=== PATIENT | female | born 1955 | race Caucasian/White ===

== ENCOUNTER 2017-06-19 07:24 | Day surgery (SDC) | payer OTHER, SELFPAY ==
[~2017-06-19 07:24] MED LIST: CHOL10002 PO; ZESTORETIC 20-121 E1 PO
== END 2017-06-19 23:08 | disposition home or self-care (01) ==
LOC: MOI MAM 07:24
PROC: 0HBU3ZX Excision of Left Breast, Percutaneous Approach, Diagnostic (ICD-10-PCS; principal; 2017-06-19)
DX: N62 Hypertrophy of breast (principal)
CPT/HCPCS: 19083; 19084; 77065; 88304; 88305; A4648; G0279

== ENCOUNTER 2021-09-09 08:31 | Day surgery (SDC) | payer OTHER ==
[~2021-09-09] VITALS: Ht 167.6 cm; Wt 92.0 kg
== END 2021-09-09 11:05 | disposition home or self-care (01) ==
LOC: ORSCSDS 08:31 → ORD 09:30 → ORSCMMR 09:30 → ORSCSDS 11:05
PROVIDERS: Internal Medicine Gastroenterology
PROC: 0DBN8ZX Excision of Sigmoid Colon, Via Natural or Artificial Opening Endoscopic, Diagnostic (ICD-10-PCS; principal; 2021-09-09 09:30)
PROC: 0DBP8ZX Excision of Rectum, Via Natural or Artificial Opening Endoscopic, Diagnostic (ICD-10-PCS; principal; 2021-09-09 09:30)
DX: Z12.11 Encounter for screening for malignant neoplasm of colon (principal); Z86.010 Personal history of colon polyps; K64.8 Other hemorrhoids; K57.30 Diverticulosis of large intestine without perforation or abscess without bleeding; K52.9 Noninfective gastroenteritis and colitis, unspecified; I10 Essential (primary) hypertension; E66.9 Obesity, unspecified; Z68.35 Body mass index [BMI] 35.0-35.9, adult; Z79.899 Other long term (current) drug therapy
CPT/HCPCS: 88305; J0461; J2250; J2704; J7120

== ENCOUNTER → 2022-04-22 | Outpatient (CLI) | payer OTHER | END | disposition home or self-care (01) | LOC: LAB 23:15 → LAB SHORT 23:15 | DX: K52.9 Noninfective gastroenteritis and colitis, unspecified (principal) | CPT/HCPCS: 87338 ==

== ENCOUNTER 2022-07-03 06:37 | Inpatient (IN) | payer OTHER ==
[~2022-07-03] VITALS: Ht 167.6 cm; Wt 91.0 kg
[~2022-07-03 06:37] MED LIST changes: +CIPR500 PO; +IRON18 MG PO; +Vitamin C100 M1 PO; +ZESTORETIC 20-1 EACH PO
--- NOTE | 2022-07-03 07:28 | NUR ---
Ambulatory in Day Surgery. History, Chart, Medications and Allergies reviewed before start of procedure.Patient confirms NPO status EXCEPT PRESCRIBED BOWEL PREP AT 0515 THIS MORNING and agrees with scheduled surgery. Patient reports completing Chlorhexadine shower X2 prior to admission to hospital.Patient states colon prep results clear. Lungs clear T/O to Auscultation. Surgical site prepped with 2% Chlorhexidine cloth wipe. PERSONAL BAG AND GLASSES WILL BE LABELED AND TAKEN TO PACU
--- NOTE | 2022-07-03 07:56 | NUR ---
REPORT GIVEN TO SEBASTIAN HALEY
--- NOTE | 2022-07-03 15:07 | NUR ---
EPIDURAL INCREAED BY 2ML/HR UP TO 12ML/HR FROM 10. WILL CONTINUE TO TITRATE EVERY 30 MIN UNTIL PAIN LESS THAN 3.
--- NOTE | 2022-07-03 20:04 | NUR ---
SHIFT SUMMARY POD0 COLECTOMY, ABD DRESSING C/D/I T/O THE SHIFT, EPIDURAL IN PLACE, PT REPORTS HAVING FULL SENSATION BUT IS GETTING EFFECT FROM PAIN MANAGEMENT PERSPECTIVE OF EPIDURAL. ABLE TO TITRATE EPIDURAL PER MD ORDER NOTED. NO ACUTE EVENTS THIS SHIFT, CALL LIGHT IN REACH, REPORT GIVEN TO NOC RN.
--- NOTE | 2022-07-04 04:40 | NUR ---
POD1 SIGMOID COLECTOMY. ROMELIA IS C/D/I AND COMPRESSED. VSS, PT NOTED TO BE BRADYCARDIC AT SOME TIMES IN THE 50'S BUT REMAINED ASYMPTOMATIC. EPIDURAL IN PLACE, SITE IS C/D/I. PAIN IS CONTROLLED WELL AT 14 MLS/HR WITH BOLUS PUSHES. PT HAS BEEN ABLE TO REPOSITION SELF T/O THE NIGHT IN BED WITH SOME ASSISTANCE. PT REPORTS FULL SENSATION T/O BODY. REPORTS INCREASED PAIN WTIH MOVEMENT, ENCOURAGED TO USE PAIN BUTTON. PT REPORTS PAIN IS WELL CONTROLLED WHEN DOING THIS. HERRERA IN PLACE, DRAINING TO GRAVITY. YELLOW URINE, GOOD OUTPUT. PT TOLLERATING MINIMAL PO INTAKE W/O N/V. NO FLATTUS NOTED. PLAN FOR PT TO GET OOB TODAY IF TOLLERABLE AND SLOWLY INCREASE PO INTAKE. NO ACUTE EVENTS T/O THE NIGHT. PT WAS ABLE TO SLEEP A LITTLE. THE PATIENT IS CURRENTLY RESTING, IN NO DISTRESS, CALL LIGHT IN REACH
[2022-07-04 05:17] LABS: BASOPHILS ABSOLUTE AUTO 0.02 K/mm3 (0.00-0.23); BASOPHILS PERCENT AUTO 0 % (0-2); EOSINOPHILS ABSOLUTE AUTO 0.01 K/mm3 (0.00-0.68); EOSINOPHILS PERCENT AUTO 0 % (0-6); Hematocrit 32.7 % (33.0-51.0); Hemoglobin 10.4 g/dL (11.5-16.0); IMMATURE GRAN ABSOLUTE AUTO 0.06 K/mm3 (0.00-0.10); IMMATURE GRAN PERCENT AUTO 1 % (0-1); LYMPHOCYTES PERCENT AUTO 13 % (21-46); MONOCYTES ABSOLUTE AUTO 0.99 K/mm3 (0.16-1.47); MONOCYTES PERCENT AUTO 8 % (4-13); Mean Corpuscular HGB 29.1 pg (26.0-34.0); Mean Corpuscular HGB Conc 31.8 g/dL (31.5-36.5); Mean Corpuscular Volume 92 fL (80-100); Mean Platelet Volume 8.1 fL (9.1-12.4); NEUTROPHILS ABSOLUTE AUTO 9.62 K/mm3 (1.96-9.15); NEUTROPHILS PERCENT AUTO 78 % (41-73); Platelet Count 271 K/mm3 (150-400); RDW Coefficient Variation 14.1 % (11.7-14.2); RDW Standard Deviation 47.9 fL (35.1-46.3); Red Blood Cell Count 3.57 M/mm3 (3.80-5.20)
[2022-07-04 06:15] LABS: Albumin, Blood 2.2 g/dL (3.4-5.0); Albumin/Globulin Ratio 0.5 (0.8-1.8); Bilirubin, Total 0.3 mg/dL (0.1-1.0); Bun/Creatinine Ratio 15.7 (12.0-20.0); Calcium, Blood 8.6 mg/dL (8.5-10.1); Creatinine, Blood 0.64 mg/dL (0.40-1.00); Globulin, Blood 4.2 g/dL (2.2-4.0); Potassium, Blood 3.2 mmol/L (3.5-5.5); Total Protein, Blood 6.4 g/dL (6.4-8.2)
--- NOTE | 2022-07-05 06:28 | NUR ---
SHIFT SUMMARY: PT SLEPT COMFORTABLY T/O THE NIGHT. EPIDURAL IN PLACE AND MANAGED PAIN. TOLERATING SMALL AMOUNTS OF PO FLUIDS AT THIS TIME. HERRERA IN PLACE, PATENT AND DRAINING TO GRAVITY. MIDLINE ROMELIA REMAINS C/D/I AT THIS TIME. RESTING AT THIS TIME WITH CALL LIGHT IN REACH.
--- NOTE | 2022-07-05 18:36 | NUR ---
END OF SHIFT SUMMARY: PATIENT PAIN CONTROLLED WITH THE EPIDURAL TODAY, OTHER THAN WITH STANDING AND TRANSFERRING. PATIENT EXPERIENCED HIGH LEVELS OF PAIN THAT RESOLVED WITH REST. PATIENT DENIED NAUSEA THROUGHOUT THE SHIFT. PATIENT CONTINUES TO DENY FLATUS. PATIENT UP TO THE CHAIR FOR LUNCH AND STAYED UP FOR ABOUT AN HOUR. PATIENT IS TOLERATING HER DIET WITHOUT NAUSEA OR AN INCREASE IN PAIN. PATIENT DID REQUIRE THE ADDITION OF A PRN TUMS FOR HEARTBURN THIS AFTERNOON. PATIENT DISPLAYS SIGNS OF ANXIETY WHEN CONTEMPLATING THE MOBILITY THAT WILL BE REQUIRED ONCE THE INDWELLING CATHETER IS DISCONTINUED TOMORROW. PROVIDED EDUCATION AND REASSURANCE.
--- NOTE | 2022-07-06 04:43 | NUR ---
SHIFT SUMMARY: PODx3 SIG. COLECTOMY. MIDLINE ROMELIA REMAINS C/D/I AT THIS TIME. PT REPORTED MILD HEARTBURN THAT WAS MANAGED WITH TUMS. ENCOURAGED TO DRINK PO FLUIDS. EPIDURAL MANAGING PAIN WELL. PT SAT IN CHAIR FOR DAY SHIFT, REMAINED IN BED FOR THE NIGHT. PLANS TO HAVE EPIDURAL REMOVED TODAY WITH HERRERA. RESTING WITH CALL LIGHT IN REACH. WILL GIVE REPORT TO DAY TIME RN.
[2022-07-07 04:16] LABS: BASOPHILS ABSOLUTE AUTO 0.04 K/mm3 (0.00-0.23); BASOPHILS PERCENT AUTO 0 % (0-2); EOSINOPHILS ABSOLUTE AUTO 0.13 K/mm3 (0.00-0.68); EOSINOPHILS PERCENT AUTO 1 % (0-6); Hematocrit 37.2 % (33.0-51.0); Hemoglobin 12.2 g/dL (11.5-16.0); IMMATURE GRAN ABSOLUTE AUTO 0.12 K/mm3 (0.00-0.10); IMMATURE GRAN PERCENT AUTO 1 % (0-1); LYMPHOCYTES ABSOLUTE AUTO 1.67 K/mm3 (0.84-5.20); LYMPHOCYTES PERCENT AUTO 10 % (21-46); MONOCYTES ABSOLUTE AUTO 0.98 K/mm3 (0.16-1.47); MONOCYTES PERCENT AUTO 6 % (4-13); Mean Corpuscular HGB 29.3 pg (26.0-34.0); Mean Corpuscular HGB Conc 32.8 g/dL (31.5-36.5); Mean Corpuscular Volume 89 fL (80-100); Mean Platelet Volume 8.4 fL (9.1-12.4); NEUTROPHILS ABSOLUTE AUTO 13.69 K/mm3 (1.96-9.15); NEUTROPHILS PERCENT AUTO 82 % (41-73); Platelet Count 369 K/mm3 (150-400); RDW Coefficient Variation 13.8 % (11.7-14.2); RDW Standard Deviation 45.1 fL (35.1-46.3); Red Blood Cell Count 4.16 M/mm3 (3.80-5.20); White Blood Cell Count 16.63 K/mm3 (4.00-11.30)
[2022-07-07 04:31] LABS: Bun/Creatinine Ratio 48.1 (12.0-20.0); Calcium, Blood 9.6 mg/dL (8.5-10.1); Creatinine, Blood 0.65 mg/dL (0.40-1.00); Phosphorus, Blood 2.8 mg/dL (2.5-4.9); Potassium, Blood 3.4 mmol/L (3.5-5.5)
--- NOTE | 2022-07-07 07:25 | NUR ---
SUMMARY NO ACUTE CHANGE SNOTED THROUGH THE NIGHT, VSS, ON RA, PAIN MNGD WITH PO NORCO, BS HYPOACTIVE, DENIES NAUSEA BUT HAS HAD C/O INDIGESTION, DRSG C/D/I, ROMELIA DRAIN PRESENT, PT ENC TO WALK BUT REFUSED, HERRERA CATH REMOVED THIS AM, STILL WAITING ON POST VOID.CALL LIGHT IN REACH, REPORT GIVEN TO DAY RN
--- NOTE | 2022-07-07 15:45 | NUR ---
SHIFT SUMMARY NO ACUTE CHANGES THIS SHIFT. MIDLINE INCISION W/ ROMELIA DRESSING REMAINS C/D/I, SUCTION INTACT. PATIENT AMBULATING WELL WITH SBA ASSIST FROM STAFF. TOLERATING FULL LIQUID DIET WELL, DENIES N/V. C/O INDIGESTION & FREQUENT HICCUPS, OFFERED TUMS & REGLAN T/O SHIFT, PATIENT DECLINES HAVING NEW IV PLACED FOR REGLAN THEREFORE NONE HAS BEEN GIVEN. PAIN HAS BEEN MINIMAL & TOELRABLE PER PATIENT T/O SHIFT. VOIDING W/O DIFFICULTY. CALLS APPROPRIATELY, IN REACH. WILL CONTINUE TO MONITOR AND REPORT TO ONCOMING RN AT 1900.
--- NOTE | 2022-07-08 05:24 | NUR ---
SHIFT SUMMARY NO ACUTE CHANGES. PT RESTED WELL. 1 NORCO FOR ABD PAIN PRN. ROMELIA DRESSING REMAINS CDI. PT INDEP IN ROOM. REPORTS VERY SMALL AMOUNT OF FLATUS. COMPLAINS OF INTERMITTENT HICCUPS AND INDIGESTION. TUMS PRN. CONTINUES TO DECLINE IV ACCESS. ALEXIS FULL LIG DIET. USES CALL LIGHT APPROPRIATELY.
--- NOTE | 2022-07-08 17:11 | NUR ---
SHIFT SUMMARY NO ACUTE CHANGES THIS SHIFT. PATIENT REPORTS FEELING BETTER THAN SHE HAS THUS FAR. PAIN MANAGED W/ 1 NORCO PER EMAR. TOLERATING FULL LIQUID DIET. PASSING GAS, NO BM YET. AMBULATING WELL WITHIN ROOM, CONTINUING TO ENCOURAGE MOBILITY. CALLS JOSÉ MIGUEL, WILL REPORT TO ONCOMING RN AT 1900.
--- NOTE | 2022-07-09 04:20 | NUR ---
SHIFT SUMMARY NO ACUTE CHANGES THIS SHIFT. PT RESTED WELL T/O NIGHT. DENIES NEED FOR PAIN MEDICATIONS. MIDLINE ROMELIA DRESSING REMAINS CDI AND COMPRESSED. PT REPORTS FLATUS, NO BM YET. DENIES INDIGESTION. INDEP TO RESTROOM. USES CALL LIGHT APPROPRIATELY.
[2022-07-09] MEDS ORDERED: Norco 5-325 Ta1 EACH PO (13:52)
--- NOTE | 2022-07-09 16:09 | NUR ---
DISCHARGE SUMMARY PT DISCHARGED TO HOME. PT LEFT ROOM VIA WHEELCHAIR JUST PRIOR TO THIS NOTE. NO IV IN PLACE AT TIME OF DC. BELONGINGS RETURNED. PT EDUCATED ON ALL DISCHARGE INSTRUCTIONS, ALL QUESTIONS ANSWERED. PT AGREES TO FOLLOW UP WITH PCP AND SURGEON ORDERED.
== END 2022-07-09 16:05 | disposition home or self-care (01) | DRG 331 ==
LOC: SURS 06:37 → PRE IP 08:00 → SURS 12:27
PROVIDERS: Surgery; ADMIT Surgery
PROC: 0DTN0ZZ Resection of Sigmoid Colon, Open Approach (ICD-10-PCS; principal; 2022-07-03 08:00)
DX: K56.699 Other intestinal obstruction unspecified as to partial versus complete obstruction (principal); I10 Essential (primary) hypertension; E78.5 Hyperlipidemia, unspecified; E55.9 Vitamin D deficiency, unspecified; Z28.21 Immunization not carried out because of patient refusal; Z90.710 Acquired absence of both cervix and uterus; Z98.890 Other specified postprocedural states; Z79.899 Other long term (current) drug therapy
CPT/HCPCS: 36415; 80048; 80053; 83735; 84100; 85025; 88307; 94760; A9270; J0295; J0461; J1100; J1650; J2001; J2250; J2370; J2405; J2704; J3010; J7120; V2790

== ENCOUNTER 2024-06-14 14:37 | Emergency (ER) | payer OTHER ==
[~2024-06-14] VITALS: Ht 165.1 cm; Wt 104.3 kg
[~2024-06-14 14:37] MED LIST changes: +Norco 5-325 Ta1 EACH PO
[2024-06-14] MEDS ORDERED: Ondansetron HCl 2 MG / ML 2ML Vial IV ONE (15:55)
[2024-06-14] MEDS ORDERED: NS 1,000 ML IV SCH (15:55)
[2024-06-14] MEDS ORDERED: Loperamide HCl 2 MG Cap PO ONE ×2 (16:00→18:45)
[2024-06-14 16:36] LABS: BASOPHILS ABSOLUTE AUTO 0.06 K/mm3 (0.00-0.23); BASOPHILS PERCENT AUTO 0 % (0-2); EOSINOPHILS ABSOLUTE AUTO 0.04 K/mm3 (0.00-0.68); EOSINOPHILS PERCENT AUTO 0 % (0-6); Hemoglobin 14.7 g/dL (11.5-16.0); IMMATURE GRAN ABSOLUTE AUTO 0.16 K/mm3 (0.00-0.10); IMMATURE GRAN PERCENT AUTO 1 % (0-1); LYMPHOCYTES ABSOLUTE AUTO 1.81 K/mm3 (0.84-5.20); LYMPHOCYTES PERCENT AUTO 10 % (21-46); MONOCYTES ABSOLUTE AUTO 0.97 K/mm3 (0.16-1.47); MONOCYTES PERCENT AUTO 5 % (4-13); Mean Corpuscular HGB 31.3 pg (26.0-34.0); Mean Corpuscular HGB Conc 34.2 g/dL (31.5-36.5); Mean Corpuscular Volume 92 fL (80-100); Mean Platelet Volume 9.2 fL (9.1-12.4); NEUTROPHILS ABSOLUTE AUTO 15.92 K/mm3 (1.96-9.15); NEUTROPHILS PERCENT AUTO 84 % (41-73); Platelet Count 263 K/mm3 (150-400); RDW Coefficient Variation 12.8 % (11.7-14.2); RDW Standard Deviation 42.5 fL (35.1-46.3); Red Blood Cell Count 4.69 M/mm3 (3.80-5.20); White Blood Cell Count 18.96 K/mm3 (4.00-11.30)
[2024-06-14 17:05] LABS: Albumin, Blood 3.7 g/dL (3.4-5.0); Albumin/Globulin Ratio 0.8 (0.8-1.8); Bilirubin, Total 0.7 mg/dL (0.1-1.0); Bun/Creatinine Ratio 29.6 (12.0-20.0); Calcium, Blood 10.3 mg/dL (8.5-10.1); Creatinine, Blood 0.98 mg/dL (0.40-1.00); Globulin, Blood 4.4 g/dL (2.2-4.0); Potassium, Blood 3.4 mmol/L (3.5-5.5); Total Protein, Blood 8.1 g/dL (6.4-8.2)
[2024-06-14 20:00] VITALS: BP 163/80
[2024-06-14] MEDS ORDERED: ONDA4 PO (20:24)
[2024-06-14] MEDS ORDERED: LOPE2C PO (20:24)
[2024-06-14] MEDS ORDERED: RX Prepack 2 Tabs Ondansetron ODT 4MG UD ONE (20:25)
== END 2024-06-14 20:57 | disposition home or self-care (01) ==
LOC: ER 14:37
PROVIDERS: Student in an Organized Health Care Education/Training Program
DX: K52.9 Noninfective gastroenteritis and colitis, unspecified (principal); K29.70 Gastritis, unspecified, without bleeding; R55 Syncope and collapse; T14.90XA Injury, unspecified, initial encounter; I10 Essential (primary) hypertension; Z79.899 Other long term (current) drug therapy; V89.2XXA Person injured in unspecified motor-vehicle accident, traffic, initial encounter
CPT/HCPCS: 74177; 80053; 84484; 85025; 93005; 93010; 96361; 96374-59; 99285-25; A9270; J2405; J7030; Q9967